=== PATIENT | male | born 1965 | race Hispanic/Latino ===

== ENCOUNTER 2017-02-07 05:38 | Emergency (ER) | payer OTHER ==
[2017-02-07 06:09] VITALS: PULSE 89; RESP 17; TEMP 98.2; O2SAT 98
--- NOTE | 2017-02-07 06:26 | ED PDOC ---
HPI: General Adult Time Seen by Provider: 02/07/17 05:52 Chief Complaint (Nursing): Abnormal Skin Integrity Chief Complaint (Provider): Abnormal Skin Integrity History Per: Patient History/Exam Limitations: no limitations Onset/Duration Of Symptoms: Days (x4) Current Symptoms Are (Timing): Still Present Additional Complaint(s): Kehinde Mandel is a 51 year old male with no significant past medical history who presents to the ED due to nasal swelling. Patient states over the weekend he developed some swelling in his nose. Reports going to urgent care and being diagnosed with sinusitis. States he was placed on Azithromycin and Prednisone. Also states he went to [place] and was seen by a lion trainer who diagnosed him with zoster and placed him on Valtrex. Reports taking medication for 1 day, 3 doses, but noted more symptoms during the day yesterday after taking Valtrex and was worried about further involvement to his eye. Denies redness around eyes or vision changes. Complains of mild headaches, but denies fever or chills. PMD: Dr. Walter Woo Past Medical History Reviewed: Historical Data, Nursing Documentation, Vital Signs Vital Signs: Last Vital Signs Temp 98.2 F 02/07/17 05:46 Pulse 89 02/07/17 05:46 Resp 17 02/07/17 05:46 BP 139/96 H 02/07/17 06:23 Pulse Ox 98 02/07/17 06:44 - Medical History PMH: No Chronic Diseases - Surgical History Surgical History: No Surg Hx - Family History Family History: States: Unknown Family Hx - Allergies Allergies/Adverse Reactions: Allergies Allergy/AdvReac Type Severity Reaction Status Date / Time No Known Allergies Allergy Verified 02/07/17 06:00 Review of Systems Constitutional: Negative for: Fever, Chills Eyes: Negative for: Vision Change, Redness ENT: Positive for: Other (nose swelling) Neurological: Positive for: Headache (mild) Physical Exam - Reviewed Nursing Documentation Reviewed: Yes Vital Signs Reviewed: Yes - Physical Exam Appears: Positive for: Non-toxic, No Acute Distress Head Exam: Positive for: ATRAUMATIC, NORMAL INSPECTION, NORMOCEPHALIC Skin: Positive for: Normal Color, Warm, Dry Eye Exam: Positive for: EOMI, Normal appearance, PERRL ENT: Negative for: Normal ENT Inspection (Erythema to left side of nose with black central punctum and swelling of left upper lip) Neck: Positive for: Normal, Painless ROM, Supple Cardiovascular/Chest: Positive for: Regular Rate, Rhythm. Negative for: Murmur Respiratory: Positive for: Normal Breath Sounds. Negative for: Respiratory Distress Gastrointestinal/Abdominal: Positive for: Normal Exam, Soft. Negative for: Tenderness Back: Positive for: Normal Inspection. Negative for: L CVA Tenderness, R CVA Tenderness, Vertebral Tenderness Extremity: Positive for: Normal ROM. Negative for: Pedal Edema, Deformity Neurologic/Psych: Positive for: Alert, Oriented (x3). Negative for: Motor/ Sensory Deficits - ECG O2 Sat by Pulse Oximetry: 98 (RA) Pulse Ox Interpretation: Normal Medical Decision Making Medical Decision Making: Time: 06:25 Initial Impression: Skin rash likely zoster. No suspicion for invasive illness at this time. Plan: --Advised patient to continue antivirals and steroids. Reassess after 48 hours. Advised to follow up with [facility] [employer] [facility] in 48 hours. Return precautions were given including spreading of erythema, fevers, chills, severe or worsening headaches, or other concerning symptoms. Scribe Attestation: Documented by London Wilson acting as a scribe for Matty Segovia MD. Scribe Attestation: All medical record entries made by the Scribe were at my direction and personally dictated by me. I have reviewed the chart and agree that the record accurately reflects my personal performance of the history, physical exam, medical decision making, and the department course for this patient. I have also personally directed, reviewed, and agree with the discharge instructions and disposition. Disposition - Clinical Impression Clinical Impression: Zoster - Patient ED Disposition Is Patient to be Admitted: No Counseled Patient/Family Regarding: Diagnosis, Need For Followup - Disposition Referrals: [facility] [Outside] Disposition: Routine/Home Disposition Time: 06:25 Condition: STABLE Instructions: Shingles (ED) Forms: [facility] ([place])
[2017-02-07 06:27] VITALS: BP 139/96
== END 2017-02-07 06:24 | disposition home or self-care (01) ==
LOC: H.ER 05:38
DX: B02.9 Zoster without complications (principal)